=== PATIENT | female | born 1985 | race Caucasian/White ===

== ENCOUNTER 2023-09-30 09:12 | Emergency (ER) | payer BC, SELFPAY ==
[2023-09-30] VITALS (11 sets, daily range): BP systolic 107–124; BP diastolic 61–81; PULSE 44–53; RESP 14–18; TEMP 36.8–36.9; O2SAT 95–100; BMI 25.3
--- NOTE | 2023-09-30 09:10 | ECG_ITS ---
APPROVED REPORT Exam: Resting ECG HR:44 bpm ECG Measurements Heart Rate 44 AXES [place] 97 P 68 QRSd 139 QRS 99 QT 512 T 17 QTc 462 Conclusion Concern for third degree heart block vs sinus bradycardia with RBBB. no acute STEMI, but patient does have ST/T wave changes. Electronically signed by : GILBERT ORDOÑEZ, 09/30/2023 16:10:43
--- NOTE | 2023-09-30 09:20 | CT_ITS ---
PROCEDURE INFORMATION: Exam: CTA Head With Contrast, Arteriography Exam date and time: 09/30/2023 10:07 AM Age: 38 years old Clinical indication: Stroke-like symptoms; Left facial droop; Additional info: L sided facial droop with forehead sparing TECHNIQUE: Imaging protocol: Computed tomographic angiography of the head with contrast. Exam focused on the arteries. 3D rendering (Not supervised by radiologist): MIP and/or 3D reconstructed images were created by the technologist. Radiation optimization: All CT scans at this facility use at least one of these dose optimization techniques: automated exposure control; mA and/or kV adjustment per patient size (includes targeted exams where dose is matched to clinical indication); or iterative reconstruction. Contrast material: ISOVUE; Contrast volume: 100 ml; Contrast route: INTRAVENOUS (IV); COMPARISON: CT HEAD/BRAIN WO CON 09/30/2023 9:57 AM FINDINGS: ANTERIOR CIRCULATION: Right internal carotid artery: Intracranial segment is patent with no significant stenosis. No aneurysm. Right middle cerebral artery: No occlusion or significant stenosis. No aneurysm. Right anterior cerebral artery: No occlusion or significant stenosis. No aneurysm. Left internal carotid artery: Intracranial segment is patent with no significant stenosis. No aneurysm. Left middle cerebral artery: No occlusion or significant stenosis. No aneurysm. Left anterior cerebral artery: No occlusion or significant stenosis. No aneurysm. POSTERIOR CIRCULATION: Right vertebral artery: No occlusion or significant stenosis. No aneurysm. Left vertebral artery: No occlusion or significant stenosis. No aneurysm. Basilar artery: No occlusion or significant stenosis. No aneurysm. Right posterior cerebral artery: No occlusion or significant stenosis. No aneurysm. Left posterior cerebral artery: No occlusion or significant stenosis. No aneurysm. Brain: No definite mass, mass effect, or midline shift. Cerebral ventricles: No ventriculomegaly. Bones/joints: No acute fracture or focal bone lesions. Soft tissues: No masses or swelling. IMPRESSION: No large vessel occlusion. No acute intracranial abnormalities.
--- NOTE | 2023-09-30 09:20 | CT_ITS ---
PROCEDURE INFORMATION: Exam: CT Head Without Contrast Exam date and time: 09/30/2023 9:57 AM Age: 38 years old Clinical indication: Stroke-like symptoms; Left facial droop; Additional info: L sided facial droop with forehead sparing TECHNIQUE: Imaging protocol: Computed tomography of the head without contrast. Radiation optimization: All CT scans at this facility use at least one of these dose optimization techniques: automated exposure control; mA and/or kV adjustment per patient size (includes targeted exams where dose is matched to clinical indication); or iterative reconstruction. Other technique: STROKE PROTOCOL was implemented. COMPARISON: No relevant prior studies available. FINDINGS: Brain: Normal. No hemorrhage. Unremarkable white matter. No mass effect. Cerebral ventricles: No ventriculomegaly. Paranasal sinuses: Visualized sinuses are unremarkable. No fluid levels. Mastoid air cells: Visualized mastoid air cells are well aerated. Bones/joints: Unremarkable. No acute fracture. Soft tissues: Unremarkable. IMPRESSION: No acute intracranial abnormality. ASSESSMENT: ASPECTS ([place] Stroke Program Early CT Score) is 10.
--- NOTE | 2023-09-30 09:20 | CT_ITS ---
PROCEDURE INFORMATION: Exam: CTA Chest With Contrast Exam date and time: 09/30/2023 10:13 AM Age: 38 years old Clinical indication: Other: Lt facial droop; Additional info: L sided facial droop with forehead sparing TECHNIQUE: Imaging protocol: Computed tomographic angiography of the chest with contrast. Exam focused on the arteries. 3D rendering (Not supervised by radiologist): MIP and/or 3D reconstructed images were created by the technologist. Radiation optimization: All CT scans at this facility use at least one of these dose optimization techniques: automated exposure control; mA and/or kV adjustment per patient size (includes targeted exams where dose is matched to clinical indication); or iterative reconstruction. Contrast material: ISOVUE; Contrast volume: 100 ml; Contrast route: INTRAVENOUS (IV); COMPARISON: CT ANGIO NECK 09/30/2023 10:07 AM FINDINGS: Pulmonary arteries: There is somewhat suboptimal heterogeneous enhancement of the pulmonary arteries due to dense contrast within the central venous system. No filling defect is identified. Aorta: Unremarkable. No aortic aneurysm. No aortic dissection. Lungs: [place] dependent and streaky subsegmental atelectasis is noted at the lung bases minimal lower lobes but also in the right middle lobe and lingula. Pleural spaces: Unremarkable. No pneumothorax. No pleural effusion. Heart: Unremarkable. No cardiomegaly. No pericardial effusion. Coronary arteries: There is no coronary artery calcification. Lymph nodes: Unremarkable. No enlarged lymph nodes. Bones/joints: Unremarkable. No acute fracture. Soft tissues: Unremarkable. IMPRESSION: No evidence for pulmonary embolism.
--- NOTE | 2023-09-30 09:20 | CT_ITS ---
PROCEDURE INFORMATION: Exam: CTA Neck With Contrast Exam date and time: 09/30/2023 10:07 AM Age: 38 years old Clinical indication: Stroke-like symptoms; Left facial droop; Additional info: L sided facial droop with forehead sparing TECHNIQUE: Imaging protocol: Computed tomographic angiography of the neck with contrast. Exam focused on the cervical segments of the vasculature. 3D rendering (Not supervised by radiologist): MIP and/or 3D reconstructed images were created by the technologist. Radiation optimization: All CT scans at this facility use at least one of these dose optimization techniques: automated exposure control; mA and/or kV adjustment per patient size (includes targeted exams where dose is matched to clinical indication); or iterative reconstruction. Contrast material: ISOVUE; Contrast volume: 100 ml; Contrast route: INTRAVENOUS (IV); COMPARISON: CT ANGIO HEAD 09/30/2023 10:07 AM FINDINGS: Right common carotid artery: No stenosis. No dissection or occlusion. Right internal carotid artery: No stenosis of the extracranial segment. No dissection or occlusion. Right external carotid artery: No occlusion or stenosis of the origin. Left common carotid artery: No stenosis. No dissection or occlusion. Left internal carotid artery: No stenosis of the extracranial segment. No dissection or occlusion. Left external carotid artery: No occlusion or stenosis of the origin. Right vertebral artery: No stenosis. No dissection or occlusion. Left vertebral artery: No stenosis. No dissection or occlusion. Soft tissues: No masses or edema. Bones/joints: No acute fracture, subluxations, or bone lesions. IMPRESSION: No stenosis or occlusion. REFERENCES: NASCET CRITERIA. The degree of stenosis in the cervical segment of the internal carotid artery is based on NASCET criteria. Normal is no stenosis. Mild is less than 50% stenosis. Moderate is 50-69% stenosis. Severe is 70% to 99% stenosis. Total occlusion is no detectable patent lumen.
--- NOTE | 2023-09-30 09:26 | PC.NURSE ---
DR ORDOÑEZ SPEAKING WITH DR CHAHAL
--- NOTE | 2023-09-30 09:29 | PC.NURSE ---
DR ORDOÑEZ AT BEDSIDE TO UPDATE PT
[2023-09-30 09:35] LABS: Basophils # 0.1 K/mm3 (0-0.2); Basophils % 1.5 % (0.1-2.0); Eosinophils # 0.2 K/mm3 (0.0-0.4); Eosinophils % 2.5 % (0.1-12.0); Hematocrit 36.2 % (37.0-47.0); Hemoglobin 12.2 g/dL (12.2-16.2); Lymphocytes # 1.4 K/mm3 (0.7-4.5); Lymphocytes % 16.1 % (10-50); Mean Corpuscular HGB Conc 33.8 g/dL (31.8-35.4); Mean Corpuscular Hemoglobin 30.6 pg (27.0-31.2); Mean Corpuscular Volume 90.5 fl (81-99); Mean Platelet Volume 8.2 fl (7.4-10.4); Monocytes # 0.5 K/mm3 (0.1-1.0); Monocytes % 6.3 % (1.7-9.3); Neutrophils # 6.3 K/mm3 (1.8-7.8); Neutrophils % 73.6 % (37.0-80.0); Platelet Count 408 K/mm3 (142-424); Red Cell Distribution Width 14.1 % (11.5-17.5); White Blood Count 8.5 K/mm3 (4.8-10.8)
[2023-09-30 09:41] LABS: Chloride 107 mmol/L (98-107); Potassium 4.1 mmoL/L (3.5-5.1); Sodium 139 mmol/L (136-145)
[2023-09-30 09:44] LABS: Alanine Aminotransferase 31 U/L (12-78); Albumin Level 3.1 g/dl (3.5-5.0); Albumin/Globulin Ratio 0.9 (1.1-1.8); Alkaline Phosphatase 82 U/L (38-126); Anion Gap 5.1 mEq/L (5-15); Aspartate Amino Transferase 34 U/L (14-36); Bilirubin,Total 0.6 mg/dl (0.2-1.3); Blood Urea Nitrogen 12 mg/dl (7-17); Carbon Dioxide 31 mmol/L (22.0-30.0); Estimated Glomerular Filt Rate 112 ml/min (>60); GFR (African American) 135 ML/MIN (>60); Globulin 3.4 g/dL (1.3-3.2); Total Protein,Serum 6.5 g/dl (6.3-8.2)
[2023-09-30 09:45] LABS: Calcium 8.7 mg/dl (8.4-10.2); Glucose 111 mg/dl (74-100)
[2023-09-30 09:50] LABS: C-Reactive Protein 67.6 mg/L (0-4)
--- NOTE | 2023-09-30 09:52 | HMH.EDGENADL ---
Discharge Plan Disposition Chief Complaint: Neuro Symptoms/Deficit Referrals Follow up/Referrals: Aminah Reis APRN [Primary Care Provider] - See instructions Clinical Impressions Clinical Impression: Erythema migrans (Lyme disease), Intermittent complete atrioventricular block, Cranial nerve VII palsy Stand Alone Forms Stand Alone Forms: Transfer Record - ED Discharge ED Provider: Isabelle Medina General Adult HPI General Chief complaint: Neuro Symptoms/Deficit Stated complaint: Stroke Like Symptoms Time Seen by Provider: 09/30/23 09:17 History of Present Illness HPI narrative: This patient is a 38-year-old female with a history of high blood pressure, ulcerative colitis managed on mesalamine, and anxiety presenting with concern for left-sided facial droop. Patient reports that last night she went to bed around 9:00 PM, and this morning she went to brush her teeth after waking up and noted that she could not swish with the left side of her mouth and water was spilling out of her mouth. She looked in the mirror and noted that the left side of her face was drooping. She denies any other symptoms, such as headache, vision changes, balance issues, gait disturbance, or any other notable motor or sensory weakness. She also notes that her heart rate is around 60 usually based on her Apple Watch, however today her heart rate is in the 40s. On extensive review of past medical history, patient reports that she has had exercise intolerance as of late with inability to run as far as she used to secondary to dyspnea on exertion. She states that she had no issue running 4 to 6 miles prior to onset of this. She also notes that she has had a rash that looks like hives that was very itchy scattered across her body, especially her extremities. She has some residual skin discoloration left. She was prescribed Vistaril for this, which she has taken the last 2 nights. This does seem to help with the itching. She denies any known tick bites, however she does spend a lot of time outside in the [place], [place] partially [place]. She is very physically active at baseline. She notes that she has had some pain in her left side of her upper back and felt that she had may be pinched nerve. It is worse whenever she bends forward or leans over to help do anything with her [id number] daughter. This has been bothering her for a few days. Otherwise, she denies any fevers, chills, chest pain, shortness of breath, cough, congestion, abdominal pain, nausea, vomiting, changes in bowel movements, or other issues. No history of shingles or herpes. Related Data Allergies Allergy/AdvReac Type Severity Reaction Status Date / Time No Known Allergies Allergy Verified 09/30/23 09:56 [facility] Disclaimer: The information contained in this section may have been updated after the patient was seen, as this information can be updated by other users. Medical History (Updated 09/30/23 @ 13:52 by Isabelle Medina DO) delivery delivered Surgical History (Updated 09/30/23 @ 09:57 by Gayle Archer RN) [place] teeth removed Tubal ligation status Social History Smoking Status: Never smoker alcohol intake: never current occupational status: employed Travel in the last 8 weeks: None ROS Obtained: Yes All systems reviewed & no additional complaints except as documented Physical Exam General General appearance: alert and in no apparent distress Head Head exam: atraumatic and normocephalic Eye Eye exam: Present normal appearance, PERRL and EOMI ENT ENT exam: Present normal exam, normal oropharynx, mucous membranes moist and normal external ear exam Neck Neck exam: Present normal inspection, full ROM and trachea midline; Absent tenderness Chest Chest inspection: Present normal inspection and symmetric chest wall rise; Absent tenderness Respiratory Respiratory exam: Present normal lung sounds bilaterally; Absent respiratory distress, wheezes, stridor or accessory muscle use Cardiovascular Cardiovascular exam: Present normal rhythm and bradycardia Abdominal Exam Abdominal exam: Present soft; Absent distention, tenderness or guarding Extremities Exam Extremities exam: Present normal inspection, full ROM and normal capillary refill; Absent tenderness or edema Back Exam Back exam: Present normal inspection and full ROM; Absent tenderness Neurological Exam Neurological exam: Present alert, oriented X3 and normal gait; Absent CN II-XII intact Expanded Neurological Exam Patient oriented to: Present person, place and time Speech: Present fluid speech Cranial nerves: Normal: EOM function (II, III, IV, ), facial sensation (V), spinal accessory function (XI) and tongue deviation (XII) and Abnormal Left: facial palsy (VII) Cerebellar function: Normal: finger to nose Cerebellar function: normal gait Motor strength - LUE: 5/5 Motor strength - RUE: 5/5 Motor strength - LLE: 5/5 Motor strength - RLE: 5/5 Upper motor neuron exam: Normal: yumiko neglect Sensory exam upper extremity: Normal: light touch Sensory exam lower extremity: Normal: light touch Coma scale eye opening: Spontaneous Coma scale motor response: Obeys commands Coma scale verbal response: Oriented Coma scale total: 15 Comment: NIH stroke scale of 2 for paralysis of L lower face. Forehead is spared Psychiatric Psychiatric exam: Present normal affect and normal mood Skin Skin exam: Present warm, dry and rash (erythema migrans, most obvious on the BLE) Lymphatic Lymphatic Findings: no adenopathy Medical Decision Making Medical Records Medical records reviewed: Yes I reviewed the patient's medical records. [place] Inquiry Pt receiving controlled substance: No Vital Signs: 09/30/23 09:13 09/30/23 10:28 09/30/23 10:30 Temperature 98.5 F Temperature Source Oral Pulse Rate 50 L 44 L Pulse Rate [Right] 46 L Respiratory Rate 17 18 18 Blood Pressure 121/68 113/64 Blood Pressure [Right Arm] 124/69 Blood Pressure Mean 79 73 Blood Pressure Mean [Right Arm] 87 Blood Pressure Source [Right Arm] Automatic Cuff 02 Sat by Pulse Oximetry 98 100 98 Oxygen Delivery Method Room Air 09/30/23 11:00 09/30/23 11:50 09/30/23 12:00 Temperature Temperature Source Pulse Rate 53 L 46 L 46 L Pulse Rate [Right] Respiratory Rate 14 18 18 Blood Pressure 124/80 116/81 110/66 Blood Pressure [Right Arm] Blood Pressure Mean 94 89 84 Blood Pressure Mean [Right Arm] Blood Pressure Source [Right Arm] 02 Sat by Pulse Oximetry 99 95 99 Oxygen Delivery Method Lab Data Lab results reviewed: Yes I reviewed the patient's lab results. Lab Results 09/30/23 09:25: WBC 8.5, RBC 4.00 L, Hgb 12.2, Hct 36.2 L, MCV 90.5, MCH 30.6, MCHC 33.8, RDW 14.1, Plt Count 408, MPV 8.2, Neut % (Auto) 73.6, Lymph % (Auto) 16.1, [place] % (Auto) 6.3, Eos % (Auto) 2.5, Baso % (Auto) 1.5, Neut # (Auto) 6.3, Lymph # (Auto) 1.4, [place] # (Auto) 0.5, Eos # (Auto) 0.2, Baso # (Auto) 0.1, ESR 113 H, Sodium 139, Potassium 4.1, Chloride 107, Carbon Dioxide 31 H, Anion Gap 5.1, BUN 12, Creatinine 0.60, Estimated GFR 112, Est GFR ( Amer) 135, Glucose 111 H, Calcium 8.7, Total Bilirubin 0.6, AST 34, ALT 31, Alkaline Phosphatase 82, Troponin I < 0.01, C-Reactive Protein 67.6 H, NT-Pro-B Natriuret Pep 2350 H, Total Protein 6.5, Albumin 3.1 L, Globulin 3.4 H, Albumin/Globulin Ratio 0.9 L, Procalcitonin 0.119, TSH 2.60, Thyroxine (T4) 7.7, Serum HCG, Qual Negative 09/30/23 12:10: CSF Glucose 50, CSF Total Protein 55.0 09/30/23 12:51: Troponin I < 0.01 09/30/23 09:25 09/30/23 09:25 Orders (Tests/Meds): ED MEDICATIONS Generic Name Dose Route Start Last Admin Trade Name Freq PRN Reason Stop Dose Admin Penicillin G Potassium 20,000,000 unit 09/30/23 12:17 Penicillin G Potassium 20 Mu Vial IV 09/30/23 12:18 ONCE ONE Discontinued Medications Generic Name Dose Route Start Last Admin Trade Name Freq PRN Reason Stop Dose Admin Diazepam 2.5 mg 09/30/23 11:12 09/30/23 11:18 Diazepam 10mg/2ml Syringe IV 09/30/23 11:13 2.5 mg ONCE ONE Administration Diazepam 2.5 mg 09/30/23 11:39 09/30/23 11:48 Diazepam 10mg/2ml Syringe IV 09/30/23 11:40 2.5 mg ONCE ONE Administration Ceftriaxone Sodium 2 gm/ 100 mls @ 200 mls/hr 09/30/23 12:14 09/30/23 12:32 Sodium Chloride IV 09/30/23 12:43 200 mls/hr ONCE ONE Administration Iopamidol 190 ml 09/30/23 10:15 09/30/23 10:16 Iopamidol-370 (76%);100ml Bottle IV 09/30/23 10:16 190 ml ONCE ONE Administration Lidocaine HCl 15 ml 09/30/23 11:13 09/30/23 11:15 Lidocaine 1% 20ml Mdv IJ 09/30/23 11:14 15 ml ONCE ONE Administration Sodium Chloride 100 ml 09/30/23 10:15 09/30/23 10:16 0.9 % Sodium Chloride 50 Ml Vial IV 09/30/23 10:16 100 ml ONCE ONE Administration Sodium Chloride 10 ml 09/30/23 10:15 09/30/23 10:16 Sodium Chloride 0.9% 10ml Syr (Rad Only) IV 09/30/23 10:16 10 ml ONCE ONE Administration ORDERS Category Date Time Status CT angio chest - dissection Stat Cat Scan 09/30/23 09:[address] angio head Stat Cat Scan 09/30/23 09:[address] angio neck Stat Cat Scan 09/30/23 09:[address] head/brain wo con Stat Cat Scan 09/30/23 09:20 Completed POCUS Point of Care (ER Only) Stat Exams 09/30/23 09:28 Ordered Albumin, CSF Routine Lab 09/30/23 12:49 Stop Req BNP [NT Pro Brain Natriuretic Pep.] Stat Lab 09/30/23 09:25 Completed C-Reactive Protein Stat Lab 09/30/23 09:25 Completed CSF Cell Count w/ Dif (tube 1) Stat Lab 09/30/23 12:10 Received Complete Blood Count Auto Diff Stat Lab 09/30/23 09:25 Completed Comprehensive Metabolic Panel Stat Lab 09/30/23 09:25 Completed Enterovirus,CSF PCR Routine Lab 09/30/23 12:49 Stop Req [place] Virus CSF/WB PCR Routine Lab 09/30/23 12:49 Stop Req Erythrocyte Sedimentation Rate Stat Lab 09/30/23 09:25 Completed Glucose,CSF Stat Lab 09/30/23 12:10 Completed HCG Qualitative, Serum Stat Lab 09/30/23 09:25 Completed HSV 1/2 PCR, (BLOOD/SWAB) Routine Lab 09/30/23 09:25 Received Lyme B. burgdorferi PCR Blood Stat Lab 09/30/23 09:25 Received Procalcitonin Stat Lab 09/30/23 09:25 Completed Yoni Mtn Spotted Fev, IgG, Qn Stat Lab 09/30/23 09:25 Received Yoni Mtn Spotted Fever, IgM Stat Lab 09/30/23 09:25 Received T4 (Thyroxine) Stat Lab 09/30/23 09:25 Completed TSH [Thyroid Stimulating Hormone] Stat Lab 09/30/23 09:25 Completed Total Protein,CSF Stat Lab 09/30/23 12:10 Completed Troponin I Q3H Lab 09/30/23 12:51 Completed Troponin I Q3H Lab 09/30/23 15:30 Ordered Troponin I Stat Lab 09/30/23 09:25 Completed Varicella Zoster IgG Stat Lab 09/30/23 09:25 Received Varicella-Zoster Ab, IgM Stat Lab 09/30/23 09:25 Received Blood Culture Stat Micro 09/30/23 09:30 Received CSF Culture & Gram Stain Stat Micro 09/30/23 13:18 Ordered ECG Data Tracing #1: I reviewed this ECG and interpreted as documented below: Bradycardia with a ventricular rate of 44 bpm. I do believe that this could be a third-degree heart block, as the patient has P waves that march out separately from QRS. Right bundle branch block noted. Significant ST/T wave abnormality without STEMI criteria. ECG initial impression date: 09/30/23 ECG initial impression time: 09:12 Tracing #2: I reviewed this ECG and interpreted as documented below: Sinus bradycardia with first-degree AV block with a ventricular rate of 42 bpm. Significantly different from prior EKG with no bundle branch block noted. ECG initial impression date: 09/30/23 ECG initial impression time: 10:43 Medical Decision Narrative: In summary, this patient is a 38-year-old female presenting to the Emergency Department for evaluation of L sided facial droop. She also has had other symptoms recently, including dyspnea on exertion, rash, and pain in her upper back. Differential diagnoses considered include but are not limited to aortic dissection, carotid dissection, CVA, intracranial mass, intracranial hemorrhage, Lyme disease, other tickborne illness, HSV, VZV, Garcia's palsy, vasculitis, MA. Ruling out the most morbid conditions drove assessment. On exam, the patient has paralysis of her left lower face as well as sinus bradycardia. She has erythema migrans. NIH stroke scale is 2 for lower facial paralysis. Last known normal is effectively 9 PM last night when she went to bed, since she woke up with the symptoms. She presents outside of tPA window. Patient was stroke protocols and sent urgently for stroke CT scan as soon as CT scanner became available. CTA of the chest was also added. She is bradycardic with abnormal EKG. I did call and have an interactive discussion with Dr. Cordero with cardiology regarding the EKG, and he feels that she could have had a previous MA but this does not meet criteria for STEMI at this time. I feel that this is most likely related to disseminated Lyme disease, as the patient has cardiac dysfunction, cranial nerve palsy, and erythema migrans on clinical exam. Workup included lab evaluation including infectious, metabolic, cardiac workup. Lyme titers and [place] spotted fever titers were sent. I independently interpreted CT scans prior to the radiologist read and noted no acute stroke. Please see their read for final interpretation. Labs were obtained that demonstrated elevated inflammatory markers. On reassessment, patient has irregular heart rhythm on monitor, for which second EKG was obtained. This demonstrated a first-degree heart block. It is different from prior EKG with no presence of bundle branch block at this time. Given concerns for disseminated Lyme disease, lumbar puncture was performed after informed consent was obtained. Opening pressure was normal at 11. Patient had clear fluid. She tolerated this procedure well. She was given IV Valium for the procedure. After lumbar puncture, patient was started on IV Rocephin and penicillin G for empiric treatment. Ultimately, feel patient would benefit from transfer to higher level of care given concerns for disseminated Lyme disease, as we do not have neurology or infectious disease here. I called and had an interactive discussion with both neurology, Dr. Van, and Dr. Goldberg at who accepted the patient for transfer to [facility] for further evaluation and management. EMS transport was arranged. I did send CSF culture and Gram stain here as well as Lyme testing, however the majority of the CSF was sent with the patient to [facility] when she was accepted. It was bagged and labeled, and we made sure to stressed the urgency that it is transported safely. [facility] can perform further CSF testing that we do not have here, such as viral panels. Patient was transferred in stable condition. Procedures Risk/Benefits of Procedure(s) Were Explained: Yes Lumbar Puncture Time Out Performed: Yes Patient Position: right lateral decubitus Skin Prep: Povidone-Iodine 1% Local Anesthetic: lidocaine 1% Amount of anesthesia used (mL): 4 Spinal Needle Gauge: 20G Interspace Used: L4-L5 Opening Pressure (cmH20): 11 Fluid Initially Obtained: clear Complications: none Critical Care Critical Care Time Critical Care Time: No
--- NOTE | 2023-09-30 09:54 | PC.NURSE ---
PT TO CT
[2023-09-30 09:56] LABS: NT Pro Brain Natriuretic Pep. 2350 pg/mL (0-125)
[2023-09-30 09:58] LABS: HCG Qualitative, Serum Negative (Negative)
[2023-09-30 10:03] LABS: T4 (Thyroxine) 7.7 ug/dl (5.53-11.0)
[2023-09-30 10:06] LABS: Troponin I < 0.01 ng/ml (0.00-0.034)
[2023-09-30 10:08] LABS: Erythrocyte Sedimentation Rate 113 mm/hr (0-20)
[2023-09-30 10:11] LABS: Procalcitonin 0.119 ng/mL (0.0-2.0)
[2023-09-30] MEDS: SODIUM CHLORIDE 0.9% 10ML SYR (RAD ONLY) 10 ML IV (10:16)
[2023-09-30] MEDS: 0.9 % SODIUM CHLORIDE 50 ML VIAL 100 ML IV (10:16)
[2023-09-30] MEDS: IOPAMIDOL-370 (76%);100ML BOTTLE 190 ML IV (10:16)
--- NOTE | 2023-09-30 10:17 | PC.NURSE ---
pt back from RAD
--- NOTE | 2023-09-30 10:18 | PC.NURSE ---
DR ORDOÑEZ AT BEDSIDE
--- NOTE | 2023-09-30 10:41 | ECG_ITS ---
APPROVED REPORT Exam: Resting ECG HR:42 bpm ECG Measurements Heart Rate 42 AXES HI 302 P 54 QRSd 98 QRS 79 QT 500 T 28 QTc 443 Conclusion SINUS BRADYCARDIA WITH FIRST DEGREE AV BLOCK MODERATE T-WAVE ABNORMALITY, CONSIDER ANTERIOR ISCHEMIA [-0.1+ mV T-WAVE IN V3/V4] ABNORMAL ECG UNCONFIRMED REPORT Electronically signed by : MI ROOT, 10/08/2023 01:23:45
--- NOTE | 2023-09-30 10:48 | PC.NURSE ---
MIREYA @ BS at this time
--- NOTE | 2023-09-30 11:08 | PC.NURSE ---
Called RAD to [facility] to [facility]
[2023-09-30] MEDS: LIDOCAINE 1% 20ML MDV 15 ML IJ (11:15)
[2023-09-30] MEDS: diazePAM 10MG/2ML SYRINGE 2.5 MG IV ×2 (11:18→11:48)
--- NOTE | 2023-09-30 12:03 | PC.NURSE ---
Dr Medina at bedside.
--- NOTE | 2023-09-30 12:18 | PC.NURSE ---
1205 TIME OUT PERFORMED, B/P 116/68 HR 46 100% ROOM AIR SAT [address] ORDOÑEZ [address] ORDOÑEZ 1209 PROCEDURE STARTED 1210 CLEAR FLUID COLLECTED BY DR ORDOÑEZ, PT TOLERATED WELL 1212 BAND-AID IN PLACE, PT SUPINE CALL LIGHT WITHIN REACH. VSS B/P 110/66 HR 46, 98% ROOM AIR SAT
--- NOTE | 2023-09-30 12:25 | PC.NURSE ---
[facility] contacted at this time for transfer, awaiting call back
[2023-09-30] MEDS: CEFTRIAXONE SODIUM 2 GM in 0.9 % SODIUM CHLORIDE 100 ML IV (12:32)
--- NOTE | 2023-09-30 12:48 | PC.NURSE ---
DR ORDOÑEZ SPEAKING WITH [facility]
[2023-09-30 13:16] LABS: Glucose,CSF 50 mg/dl (40-70)
[2023-09-30 13:20] LABS: Troponin I < 0.01 ng/ml (0.00-0.034)
--- NOTE | 2023-09-30 13:28 | PC.NURSE ---
Report called to [facility]
--- NOTE | 2023-09-30 13:45 | PC.NURSE ---
Called Ems for transfer
[2023-09-30 15:19] LABS: Appearance,CSF Clear (Clear)
[2023-09-30 15:20] LABS: Red Blood Cell,CSF 152 cells/uL (0); Volume,CSF 2 mL; White Blood Cell,CSF 22 cells/uL (0-5)
[2023-09-30 15:21] LABS: Mononuclear WBCs,CSF 2 %; Polynuclear WBCs,CSF 0 %
[2023-10-01 10:08] LABS: Varicella Zoster IgG 949 index (Immune >165)
--- NOTE | 2023-10-02 10:05 | PC.NURSE ---
csf culture results discussed with , NTD
[2023-10-02 13:18] LABS: Varicella-Zoster Ab, IgM 2.62 index (0.00-0.90)
[2023-10-04 10:35] LABS: Lyme B. burgdorferi PCR Blood Negative (Negative)
[2023-10-04 13:26] LABS: CSF Lyme (B. burgdorferi) PCR Negative (Negative)
[2023-10-05 19:16] LABS: HSV-1 DNA Negative (Negative); HSV-2 DNA Negative (Negative)
[2023-10-08 10:25] LABS: Rocky Mtn Spotted Fever, IgM <1:64
[2023-10-08 10:26] LABS: RMSF, IgG, EIA <1:64
== END 2023-09-30 14:25 | disposition short-term general hospital (02) ==
PROVIDERS: Emergency Provider Emergency Medicine; PCP Nurse Practitioner
DX: I44.2 Atrioventricular block, complete (principal); A69.20 Lyme disease, unspecified; G51.0 Bell's palsy; R00.1 Bradycardia, unspecified
CPT/HCPCS: 36415; 70450; 70496; 70498; 71275; 80053; 82945; 83880; 84145; 84155; 84436; 84443; 84484; 84703; 85025; 85651; 86140; 86609; 86787; 87040; 87070; 87205; 87476; 87529; 89051; 93005; 96365; 96375; 99285; J0696; Q9967

== ENCOUNTER 2023-10-09 09:57 | Outpatient (CLI) | payer BC, SELFPAY ==
[2023-10-09 10:03] VITALS: BMI 23.8
[2023-10-09 10:21] LABS: Basophils # 0.1 K/mm3 (0-0.2); Basophils % 1.7 % (0.1-2.0); Eosinophils # 0.1 K/mm3 (0.0-0.4); Eosinophils % 2.7 % (0.1-12.0); Hematocrit 38.2 % (37.0-47.0); Hemoglobin 12.6 g/dL (12.2-16.2); Lymphocytes # 1.9 K/mm3 (0.7-4.5); Lymphocytes % 35.7 % (10-50); Mean Corpuscular HGB Conc 32.9 g/dL (31.8-35.4); Mean Corpuscular Hemoglobin 29.2 pg (27.0-31.2); Mean Corpuscular Volume 88.6 fl (81-99); Mean Platelet Volume 8.9 fl (7.4-10.4); Monocytes # 0.4 K/mm3 (0.1-1.0); Monocytes % 7.2 % (1.7-9.3); Neutrophils # 2.8 K/mm3 (1.8-7.8); Neutrophils % 52.7 % (37.0-80.0); Platelet Count 283 K/mm3 (142-424); Red Blood Count 4.31 M/mm3 (4.20-5.40); Red Cell Distribution Width 14.7 % (11.5-17.5); White Blood Count 5.2 K/mm3 (4.8-10.8)
[2023-10-09 10:31] LABS: Blood Urea Nitrogen 12 mg/dl (7-17); Creatinine Clearance Estimated 143 mL/min (50-200); Estimated Glomerular Filt Rate 112 ml/min (>60); GFR (African American) 135 ML/MIN (>60)
[2023-10-09 10:32] LABS: Alanine Aminotransferase 31 U/L (12-78); Albumin Level 3.5 g/dl (3.5-5.0); Alkaline Phosphatase 65 U/L (38-126); Aspartate Amino Transferase 31 U/L (14-36); Bilirubin,Direct 0.2 mg/dl (0.0-0.4); Bilirubin,Indirect 0.1 mg/dL (0.0-0.9); Bilirubin,Total 0.3 mg/dl (0.2-1.3); Bilirubin,Unconjugated 0.1 mg/dL (0.0-1.1); Total Protein,Serum 6.6 g/dl (6.3-8.2)
[2023-10-09 11:26] LABS: C-Reactive Protein 5.6 mg/L (0-4)
== END 2023-10-09 10:20 | disposition home or self-care (01) ==
LOC: INF 09:58
PROVIDERS: PCP Nurse Practitioner
DX: Z45.2 Encounter for adjustment and management of vascular access device (principal); A69.20 Lyme disease, unspecified
CPT/HCPCS: 36592; 80076; 82565; 84520; 85025; 86140; 96523

== ENCOUNTER 2023-10-11 21:45 | Emergency (ER) | payer BC, SELFPAY ==
[2023-10-11 21:46] VITALS: BP 150/98; PULSE 72; RESP 20; TEMP 36.8; O2SAT 98; BMI 23.6
--- NOTE | 2023-10-11 21:55 | XR_ITS ---
PROCEDURE INFORMATION: Exam: XR Chest Exam date and time: 10/11/2023 10:06 PM Age: 38 years old Clinical indication: Device placement; Picc; Additional info: Picc line placement concern TECHNIQUE: Imaging protocol: Radiologic exam of the chest. Views: 1 view. COMPARISON: CT ANGIO CHEST 09/30/2023 10:13 AM FINDINGS: Tubes, catheters and devices: PICC line seen with distal tip at level of left humeral shaft and not in superior vena cava. Lungs: Unremarkable. No consolidation. Pleural spaces: Unremarkable. No pleural effusion. No pneumothorax. Heart/Mediastinum: Unremarkable. No cardiomegaly. Bones/joints: Unremarkable. IMPRESSION: 1. No acute findings. 2. PICC line tip at left humeral shaft level and not superior vena cava. Consider readjustment.
[2023-10-11 22:30] VITALS: BP 122/85; PULSE 66; O2SAT 97
[2023-10-11] MEDS: CEFTRIAXONE SODIUM 2 GM in 0.9 % SODIUM CHLORIDE 100 ML IV (22:43)
--- NOTE | 2023-10-11 23:58 | ED_ITS ---
Discharge Plan Disposition Patient Disposition: Home, Self-Care Chief Complaint: Recheck/Abnormal Lab/Rx Referrals Follow up/Referrals: Aminah Reis APRN [Primary Care Provider] - See instructions Activity Restrictions/Add. Instructions Additional Instructions/Restrictions: Follow-up with infusion clinic tomorrow. You will be contacted with time to show up at infusion clinic to have midline placed. Call your family doctor to establish care for this visit to the emergency department and schedule follow-up within 48 hours to ensure improvement. If you have any worsening of your condition or any other concerning signs or symptoms, return to the emergency department or your primary care doctor for further evaluation. Clinical Impressions Clinical Impression: Dysfunction of intravenous infusion line Discharge ED Provider: Wilfredo Anderson General Adult HPI General Chief complaint: Recheck/Abnormal Lab/Rx Stated complaint: PIC line has blood in it Time Seen by Provider: 10/11/23 21:55 Mode of Arrival: Ambulatory Source of Information: Patient Limitations: No Limitations Description of Symptoms (Recalled from ER Triage Doc. by RN): Patients presents to ED with a PICC line to her left arm that was placed last monday. Patient is giving herself antibiotics every night and tonight went to go start her antibiotics and PICC flushed fine but has some bleeding and dressing was wet. History of Present Illness HPI narrative: Please note that above description of symptoms, in this electronic medical record under categorization of recalled from ER triage doctor by RN are reflective of an initial nursing assessment, however, is not reflective of my full history and physical exam that was personally taken and clarified. Consequentially, this preceding description of symptoms, which may include the patient's categorized chief complaint in the EMR, do not reflect my personal clinical impression, and the ultimate description of history of present illness and patient stated complaints should be deferred to this section of the note. Unless stated otherwise or congruent with this section of the note, additional signs, symptoms, or incongruence should be interpreted as inaccurate with my clinical impression. Related Data Allergies Allergy/AdvReac Type Severity Reaction Status Date / Time No Known Allergies Allergy Verified 09/30/23 09:56 [facility] Disclaimer: The information contained in this section may have been updated after the patient was seen, as this information can be updated by other users. Medical History (Updated 10/12/23 @ 00:06 by Wilfredo Anderson MD) delivery delivered Surgical History (Updated 09/30/23 @ 09:57 by Gayle Archer RN) [place] teeth removed Tubal ligation status Social History (Updated 09/30/23 @ 13:52 by Isabelle Medina DO) Smoking Status: Never smoker alcohol intake: never current occupational status: employed Travel in the last 8 weeks: None ROS Obtained: Yes All systems reviewed & no additional complaints except as documented Physical Exam General General appearance: alert and in no apparent distress Head Head exam: atraumatic and normocephalic Eye Eye exam: Present normal appearance, PERRL and EOMI ENT ENT exam: Present mucous membranes moist Neck Neck exam: Present normal inspection, full ROM and trachea midline Respiratory Respiratory exam: Absent respiratory distress, wheezes, stridor, accessory muscle use or prolonged expiratory phase Cardiovascular Cardiovascular exam: Present regular rate, normal rhythm and other (Monitor in place) Abdominal Exam Abdominal exam: Present soft; Absent distention, tenderness, guarding, rebound or rigidity Extremities Exam Extremities exam: Present other (PICC line in place); Absent edema Neurological Exam Neurological exam: Present alert, oriented X3 and normal gait; Absent CN II-XII intact or motor sensory deficit Skin Skin exam: Present warm and dry; Absent diaphoresis or erythema Medical Decision Making Medical Records Medical records reviewed: Yes I reviewed the patient's medical records. [place]an Inquiry Pt receiving controlled substance: No [place]an was queried for this patient: No Vital Signs: 10/11/23 21:46 10/11/23 22:30 Temperature 98.3 F Temperature Source Oral Pulse Rate 66 Pulse Rate [Right Radial] 72 Respiratory Rate 20 Blood Pressure 122/85 Blood Pressure [Right Arm] 150/98 H Blood Pressure Mean 91 Blood Pressure Mean [Right Arm] 115 Blood Pressure Source [Right Arm] Automatic Cuff Blood Pressure Position [Right Arm] Sitting 02 Sat by Pulse Oximetry 98 97 Oxygen Delivery Method Room Air Orders (Tests/Meds): ED MEDICATIONS Discontinued Medications Generic Name Dose Route Start Last Admin Trade Name Freq PRN Reason Stop Dose Admin Ceftriaxone Sodium 2 gm/ 100 mls @ 200 mls/hr 10/11/23 22:10 10/11/23 22:43 Sodium Chloride IV 10/11/23 22:39 200 mls/hr ONCE ONE Administration ORDERS Category Date Time Status CXR --portable [XR chest portable] Stat Exams 10/11/23 21:55 Completed Medical Decision Narrative: 38-year-old female history of disseminated Lyme disease currently on daily 2 g Rocephin presenting with concern for PICC line/midline displacement/dysfunction. No other concerns at this time. Patient states that she was trying to flush her line prior to her infusion of Rocephin just prior to arrival and all the saline leaked down onto her arm. Physical exam significant for well-appearing midline left upper extremity, but upon testing, not drawing, but flushing causing saline leaking from insertion site. IV was placed, patient received 2 g IV Rocephin in right upper extremity. Chest x-ray obtained, midline in place left upper extremity, it is not a PICC line. Because of his dysfunction, mid line to be pulled. Order was placed for outpatient midline placement for patient to have infusion clinic placed Tomorrow, 10/12/2023, patient okay with this and I feel she is appropriate for outpatient management. Because patient at baseline without signs or symptoms of clinical decompensation, deemed appropriate for discharge. Results were relayed to patient who voiced understanding and were agreeable to outpatient management and follow up. I discussed my clinical impression with patient and answered all questions. At this time, the evidence for any other entities in the differential is insufficient to warrant any further testing or ED observation. This was explained as well. Advisory was given that persistent or worsening symptoms require further evaluation. I confirmed the understanding of this discussion. Critical Care Critical Care Time Critical Care Time: No
[2023-10-12 00:14] VITALS: BP 122/85; PULSE 68; RESP 18; TEMP 36.8; O2SAT 97
--- NOTE | 2023-10-12 00:16 | PC.NURSE ---
pulled pts midline in [place] per MD Anderson. PIV in right AC pulled at DC. DC instructions given to pt and pt verbalizes understanding.
== END 2023-10-12 00:20 | disposition home or self-care (01) ==
PROVIDERS: Emergency Provider Emergency Medicine; PCP Nurse Practitioner
DX: T82.598A Other mechanical complication of other cardiac and vascular devices and implants, initial encounter (principal); A69.20 Lyme disease, unspecified; Z45.2 Encounter for adjustment and management of vascular access device
CPT/HCPCS: 71045; 96365; 99284; J0696

== ENCOUNTER 2023-10-13 07:52 | Outpatient (CLI) | payer BC, SELFPAY | END 2023-10-13 23:59 | disposition home or self-care (01) | LOC: INF 07:54 | PROVIDERS: PCP Nurse Practitioner; Visit Provider Internal Medicine | DX: Z45.2 Encounter for adjustment and management of vascular access device (principal); A69.20 Lyme disease, unspecified | CPT/HCPCS: 36410 ==

== ENCOUNTER 2023-10-16 10:07 | Outpatient (CLI) | payer BC, SELFPAY ==
--- NOTE | 2023-10-16 10:00 | PC.NURSE ---
1000-collected labs via venipuncture stick in left ac with butterfly needle; will fax results to
[2023-10-16 10:12] VITALS: BMI 23.8
[2023-10-16 10:30] LABS: Basophils # 0.1 K/mm3 (0-0.2); Basophils % 1.2 % (0.1-2.0); Eosinophils # 0.2 K/mm3 (0.0-0.4); Eosinophils % 3.4 % (0.1-12.0); Hematocrit 40.4 % (37.0-47.0); Hemoglobin 13.4 g/dL (12.2-16.2); Lymphocytes # 2.2 K/mm3 (0.7-4.5); Lymphocytes % 38.5 % (10-50); Mean Corpuscular HGB Conc 33.3 g/dL (31.8-35.4); Mean Corpuscular Hemoglobin 29.1 pg (27.0-31.2); Mean Corpuscular Volume 87.7 fl (81-99); Mean Platelet Volume 8.3 fl (7.4-10.4); Monocytes # 0.6 K/mm3 (0.1-1.0); Monocytes % 10.3 % (1.7-9.3); Neutrophils # 2.6 K/mm3 (1.8-7.8); Neutrophils % 46.6 % (37.0-80.0); Platelet Count 268 K/mm3 (142-424); Red Blood Count 4.61 M/mm3 (4.20-5.40); Red Cell Distribution Width 14.8 % (11.5-17.5); White Blood Count 5.6 K/mm3 (4.8-10.8)
[2023-10-16 10:47] LABS: Blood Urea Nitrogen 11 mg/dl (7-17); Creatinine Clearance Estimated 143 mL/min (50-200); Estimated Glomerular Filt Rate 112 ml/min (>60); GFR (African American) 135 ML/MIN (>60)
[2023-10-16 10:48] LABS: Alanine Aminotransferase 20 U/L (12-78); Albumin Level 3.6 g/dl (3.5-5.0); Alkaline Phosphatase 59 U/L (38-126); Aspartate Amino Transferase 30 U/L (14-36); Bilirubin,Direct 0.3 mg/dl (0.0-0.4); Bilirubin,Indirect 0.1 mg/dL (0.0-0.9); Bilirubin,Total 0.4 mg/dl (0.2-1.3); Bilirubin,Unconjugated 0.1 mg/dL (0.0-1.1); Total Protein,Serum 6.8 g/dl (6.3-8.2)
[2023-10-16 10:55] LABS: C-Reactive Protein 1.6 mg/L (0-4)
== END 2023-10-16 10:10 | disposition home or self-care (01) ==
LOC: INF 10:08
PROVIDERS: Internal Medicine; PCP Nurse Practitioner; Visit Provider Student in an Organized Health Care Education/Training Program
DX: A69.20 Lyme disease, unspecified (principal); Z45.2 Encounter for adjustment and management of vascular access device
CPT/HCPCS: 36415; 80076; 82565; 84520; 85025; 86140; 96523

== ENCOUNTER 2023-10-19 14:41 | Outpatient (CLI) | payer BC, SELFPAY ==
--- NOTE | 2023-10-19 | CA_ITS ---
FINAL REPORT TECHNIQUE: Sonographic images of the veins of the right upper extremity were obtained from axilla to antecubital fossa. Additionally, images of the internal jugular vein and subclavian vein were also obtained. CLINICAL HISTORY: PICC line in place in medial upper right arm. Patient had an IV stick in right mid forearm 10/10/23. A knot appeared near the IV site. Redness noted. COMPARISON: None FINDINGS: The deep veins of the right upper extremity are compressible from axilla to antecubital fossa. Blood flow is demonstrated by both color and spectral Doppler as well. The internal jugular vein and subclavian vein are also patent. There is lack of compressibility in the distal cephalic vein at a site of prior catheter placement consistent with superficial venous thrombosis. These results were called to the ordering CARPENTER/LABOR by the technologist 10/19/2023. IMPRESSION: No evidence of deep venous thrombosis of the upper extremity. Superficial thrombosis is present in the distal cephalic vein as described. Reviewed, Interpreted and Dictated by Nino Myles III, MD Transcribed by Swapna Taylor Authenticated and [facility]
== END 2023-10-19 23:59 | disposition home or self-care (01) ==
LOC: RT 14:43
PROVIDERS: PCP Nurse Practitioner; Visit Provider Nurse Practitioner
DX: M79.601 Pain in right arm (principal); I80.8 Phlebitis and thrombophlebitis of other sites
CPT/HCPCS: 93971

== ENCOUNTER 2023-10-23 09:53 | Outpatient (CLI) | payer BC, SELFPAY ==
[2023-10-23 10:08] VITALS: BMI 24.5
[2023-10-23 10:22] LABS: Basophils # 0.1 K/mm3 (0-0.2); Basophils % 2.9 % (0.1-2.0); Eosinophils # 0.1 K/mm3 (0.0-0.4); Eosinophils % 3.7 % (0.1-12.0); Hematocrit 40.6 % (37.0-47.0); Hemoglobin 13.2 g/dL (12.2-16.2); Lymphocytes # 2.1 K/mm3 (0.7-4.5); Lymphocytes % 62.3 % (10-50); Mean Corpuscular HGB Conc 32.6 g/dL (31.8-35.4); Mean Corpuscular Hemoglobin 28.9 pg (27.0-31.2); Mean Corpuscular Volume 88.6 fl (81-99); Mean Platelet Volume 8.5 fl (7.4-10.4); Monocytes # 0.2 K/mm3 (0.1-1.0); Neutrophils # 0.8 K/mm3 (1.8-7.8); Neutrophils % 24.2 % (37.0-80.0); Platelet Count 206 K/mm3 (142-424); Red Blood Count 4.58 M/mm3 (4.20-5.40); Red Cell Distribution Width 14.6 % (11.5-17.5); White Blood Count 3.4 K/mm3 (4.8-10.8)
[2023-10-23 10:26] LABS: MANUAL DIFFERENTIAL MANUAL DIFFERENTIAL (MANUAL DIFF)
[2023-10-23 10:40] LABS: Alanine Aminotransferase 16 U/L (12-78); Alkaline Phosphatase 56 U/L (38-126); Aspartate Amino Transferase 29 U/L (14-36); Bilirubin,Direct 0.4 mg/dl (0.0-0.4); Bilirubin,Indirect 0.2 mg/dL (0.0-0.9); Bilirubin,Total 0.6 mg/dl (0.2-1.3); Bilirubin,Unconjugated 0.2 mg/dL (0.0-1.1); Blood Urea Nitrogen 8 mg/dl (7-17); Creatinine Clearance Estimated 143 mL/min (50-200); Estimated Glomerular Filt Rate 112 ml/min (>60); GFR (African American) 135 ML/MIN (>60)
[2023-10-23 10:41] LABS: Total Protein,Serum 7.4 g/dl (6.3-8.2)
[2023-10-23 10:46] LABS: C-Reactive Protein 3.3 mg/L (0-4)
[2023-10-23 11:19] LABS: Eosinophils % 2 % (0-3); Lymphocytes % 75 % (10-50); Monocytes % 3 % (2-9); Neutrophils % 20 % (42-76); RBC Morphology Normal; Total Cells Counted 100
[2023-10-23 11:20] LABS: Platelet Estimate Normal
== END 2023-10-23 10:15 | disposition home or self-care (01) ==
LOC: INF 09:54
PROVIDERS: PCP Nurse Practitioner; Visit Provider Internal Medicine
DX: A69.20 Lyme disease, unspecified (principal); Z51.81 Encounter for therapeutic drug level monitoring; Z45.2 Encounter for adjustment and management of vascular access device
CPT/HCPCS: 36415; 80076; 82565; 84520; 85007; 85025; 86140; G0463